=== PATIENT | female | born 1985 | race Caucasian/White ===

== ENCOUNTER 2023-08-13 11:35 | Emergency (ER) | payer BC, MEDICAID ==
[~2023-08-13] VITALS: Ht 154.9 cm; Wt 65.6 kg
[~2023-08-13 11:35] MED LIST: AMBI10TA PO; ATIV0.5T3 PO; EXCETAB80 PO; FLEX5TAB3 PO; FOLI1TAB86 PO; GABA-282 PO; HYDR50TA70 PO; IBUP-1022 PO; LAMO100T80 PO; LATU40TA2 PO; LEVO25TA4 PO; LITH300C PO; PAXI30TA12 PO; PRAZ2CAP PO; QUET100T2 PO; SYNT75TA PO; TRAZ-257 PO; TRAZ50TA2 PO; TYLE325T5 PO; VITA100T2 PO; VITA500046 PO; VITMTA PO; WELL100T PO
[2023-08-13] MEDS ORDERED: ACET-683 PO (12:02)
[2023-08-13] MEDS ORDERED: LEVO50TA5 (12:02)
[2023-08-13] MEDS ORDERED: METH-1164 (12:02)
[2023-08-13] MEDS ORDERED: BENA25CA4 PO (12:02)
[2023-08-13] MEDS ORDERED: IBUP200T46 PO (12:02)
[2023-08-13] MEDS ORDERED: ACETAMINOPHEN *IV* 1,000 MG in IV 1 EA IV ONE (12:55)
[2023-08-13] MEDS ORDERED: diphenhydrAMINE 50MG/ML VIAL IV ONE (12:55)
[2023-08-13] MEDS ORDERED: NS 1,000 ML IV ONE (12:55)
[2023-08-13] MEDS ORDERED: KETOROLAC 30 MG/ML 1ML VIAL IV ONE (12:55)
[2023-08-13 13:37] LABS: BASO # 0.1 10^3/uL (0.0-0.2); BASO % 0.6 % (0.0-1.0); EOS # 0.1 10^3/uL (0.0-0.5); EOS % 0.5 % (0.0-3.0); HEMATOCRIT 35.9 % (36.0-47.0); HEMOGLOBIN 11.8 g/dl (12.0-15.5); LYMPH # 2.3 10^3/uL (1.5-5.0); LYMPH % 21.8 % (24.0-44.0); MEAN CORPUSCULAR HEMOGLOBIN 29.9 pg (27.0-33.0); MEAN CORPUSCULAR HGB CONC 32.9 g/dl (32.0-36.5); MEAN CORPUSCULAR VOLUME 91.1 fl (80.0-96.0); MONO # 0.6 10^3/uL (0.0-0.8); MONO % 5.4 % (2.0-8.0); NEUTROPHILS # 7.5 10^3/uL (1.5-8.5); NEUTROPHILS % 71.3 % (36.0-66.0); PLATELET COUNT, AUTOMATED 380 10^3/uL (150-450); RED BLOOD COUNT 3.94 10^6/uL (4.00-5.40); WHITE BLOOD COUNT 10.5 10^3/uL (4.0-10.0)
[2023-08-13 13:42] LABS: ERYTHROCYTE SEDIMENTATION RATE 12 mm/hr (0-20)
[2023-08-13 14:02] LABS: C REACTIVE PROTEIN QUANTITATIV < 0.40 MG/DL (<1.0); MAGNESIUM LEVEL 1.9 MG/DL (1.8-2.4)
[2023-08-13] MEDS ORDERED: ONDANSETRON 4MG 2ML VIAL IV ONE (14:55)
[2023-08-13] MEDS ORDERED: MAG SULF 1GM/100ML (MAG RUN) 1 GM in IV 1 EA IV ONE ×2 (14:55→16:25)
[2023-08-13] MEDS ORDERED: LIDOCAINE 2% MDV 20ML VIAL SC ONE (18:30)
[2023-08-13 19:29] VITALS: BP 116/76; TEMP 98; O2SAT 100
== END 2023-08-13 19:36 | disposition home or self-care (01) ==
LOC: M ED 11:35
DX: G43.909 Migraine, unspecified, not intractable, without status migrainosus (principal); F12.10 Cannabis abuse, uncomplicated; Z88.8 Allergy status to other drugs, medicaments and biological substances; Z91.040 Latex allergy status; Z79.1 Long term (current) use of non-steroidal anti-inflammatories (NSAID); Z79.899 Other long term (current) drug therapy; Z79.891 Long term (current) use of opiate analgesic
CPT/HCPCS: 64400; 80047; 83735; 84702; 85025; 85652; 86140; 96365; 96366; 96375; 99284; J2405; J3475

== ENCOUNTER → 2023-08-19 | Outpatient (CLI) | payer BC ==
[~2023-08-19] MED LIST changes: +ACET-683 PO; +BENA25CA4 PO; +IBUP200T46 PO; +LEVO50TA5; +METH-1164
[2023-08-19 13:48] LABS: HEMATOCRIT 36.5 % (36.0-47.0); HEMOGLOBIN 11.9 g/dl (12.0-15.5); MEAN CORPUSCULAR HEMOGLOBIN 29.9 pg (27.0-33.0); MEAN CORPUSCULAR HGB CONC 32.6 g/dl (32.0-36.5); MEAN CORPUSCULAR VOLUME 91.7 fl (80.0-96.0); PLATELET COUNT, AUTOMATED 394 10^3/uL (150-450); RED BLOOD COUNT 3.98 10^6/uL (4.00-5.40); WHITE BLOOD COUNT 8.8 10^3/uL (4.0-10.0)
[2023-08-19 14:00] LABS: ERYTHROCYTE SEDIMENTATION RATE 16 mm/hr (0-20)
[2023-08-19 14:08] LABS: URIC ACID 4.2 MG/DL (3.1-7.8)
[2023-08-19 14:09] LABS: C REACTIVE PROTEIN QUANTITATIV < 0.40 MG/DL (<1.0)
[2023-08-19 14:12] LABS: ALBUMIN 3.8 G/DL (3.2-5.2); ALKALINE PHOSPHATASE 76 U/L (46-116); ALT/SGPT 20 U/L (7.0-40); AST/SGOT 16 U/L (<34); BILIRUBIN,TOTAL 0.5 MG/DL (0.3-1.2); BLOOD UREA NITROGEN 15 MG/DL (9-23); CALCIUM LEVEL 9.2 MG/DL (8.5-10.1); CARBON DIOXIDE LEVEL 28 MMOL/L (20-31); CHLORIDE LEVEL 106 MMOL/L (98-107); CHOLESTEROL LEVEL 218 MG/DL (<200); CHOLESTEROL RISK RATIO 3.79 (<5); CREATININE FOR GFR 0.69 MG/DL (0.55-1.30); FREE T4 0.99 NG/DL (0.89-1.76); GLOMERULAR FILTRATION RATE > 60.0 (>60); GLUCOSE, FASTING 96 MG/DL (60-100); HDL CHOLESTEROL 57.4 MG/DL (>40); NON-HDL-C 160.6 MG/DL; POTASSIUM SERUM 4.1 MMOL/L (3.5-5.1); SODIUM LEVEL 137 MMOL/L (136-145); THYROID STIMULATING HORMONE 2.297 uIU/ML (0.55-4.78); TRIGLYCERIDES LEVEL 118 MG/DL (<150); VITAMIN B12 LEVEL 363 PG/ML (211-911)
[2023-08-19 14:13] LABS: FOLATE 9.3 NG/ML (>5.4); RHEUMATOID FACTOR QUANT < 3.5 IU/ML (<14)
[2023-08-19 14:15] LABS: FREE T3 3.4 PG/ML (2.3-4.2)
[2023-08-19 14:16] LABS: THYROID PEROXIDASE ANTIBODY 652 U/ML (<60.0)
== END ==
LOC: M LAB 13:00
PROVIDERS: ATTEND Registered Nurse
DX: Z13.29 Encounter for screening for other suspected endocrine disorder (principal); Z13.21 Encounter for screening for nutritional disorder; Z13.220 Encounter for screening for lipoid disorders; M25.541 Pain in joints of right hand; E06.3 Autoimmune thyroiditis; E72.12 Methylenetetrahydrofolate reductase deficiency

== ENCOUNTER → 2023-08-19 | Outpatient (REF) ==
[2023-08-19 13:33] LABS: RSV AMPLIFICATION NEGATIVE (NEGATIVE)
== END ==
LOC: M EMP 12:24
PROVIDERS: ATTEND Family Medicine
DX: Z11.52 Encounter for screening for COVID-19 (principal)

== ENCOUNTER → 2023-08-27 | Outpatient (CLI) | payer BC ==
[2023-08-27 13:16] LABS: C REACTIVE PROTEIN QUANTITATIV < 0.40 MG/DL (<1.0)
[2023-08-27 13:17] LABS: CHOLESTEROL LEVEL 226 MG/DL (<200); LDL CHOLESTEROL 139.6 MG/DL (<100); TRIGLYCERIDES LEVEL 107 MG/DL (<150)
[2023-08-27 13:20] LABS: TOTAL 25(OH) VITAMIN D 28.9 NG/ML (20.0-100.0)
== END ==
LOC: M LAB 12:19
PROVIDERS: ATTEND Registered Nurse
DX: M62.838 Other muscle spasm (principal); E78.01 Familial hypercholesterolemia

== ENCOUNTER → 2023-10-08 | Outpatient (REF) ==
[2023-10-08 14:13] LABS: RSV AMPLIFICATION NEGATIVE (NEGATIVE)
== END ==
LOC: M EMP 13:19
PROVIDERS: ATTEND Family Medicine
DX: Z11.52 Encounter for screening for COVID-19 (principal)

== ENCOUNTER 2023-10-15 08:47 | Emergency (ER) | payer BC ==
[~2023-10-15] VITALS: Ht 154.9 cm; Wt 66.0 kg
[2023-10-15] MEDS ORDERED: ROSU20TA61 (08:55)
[2023-10-15] MEDS ORDERED: GABA-1171 (08:55)
[2023-10-15] MEDS ORDERED: TIZA10TA (08:55)
[2023-10-15 10:01] LABS: RSV AMPLIFICATION NEGATIVE (NEGATIVE)
[2023-10-15] MEDS: IBUPROFEN 600MG TAB PO ONE (11:14)
[2023-10-15] MEDS ORDERED: BENZ200C70 PO (11:54)
[2023-10-15] MEDS ORDERED: IBUP-1022 PO (11:54)
[2023-10-15 12:03] VITALS: BP 100/68; TEMP 97.8; O2SAT 98
== END 2023-10-15 12:04 | disposition home or self-care (01) ==
LOC: M ED 08:47
DX: J10.01 Influenza due to other identified influenza virus with the same other identified influenza virus pneumonia (principal); G43.909 Migraine, unspecified, not intractable, without status migrainosus; K21.9 Gastro-esophageal reflux disease without esophagitis; E03.9 Hypothyroidism, unspecified; E55.9 Vitamin D deficiency, unspecified; Z91.040 Latex allergy status; Z88.8 Allergy status to other drugs, medicaments and biological substances; Z79.891 Long term (current) use of opiate analgesic; Z79.899 Other long term (current) drug therapy; Z79.1 Long term (current) use of non-steroidal anti-inflammatories (NSAID)

== ENCOUNTER 2023-10-22 11:24 | Emergency (ER) | payer BC ==
[~2023-10-22] VITALS: Ht 154.9 cm; Wt 64.8 kg
[~2023-10-22 11:24] MED LIST changes: +BENZ200C70 PO; +GABA-1171; +ROSU20TA61; +TIZA10TA
[2023-10-22 16:50] VITALS: BP 108/71; TEMP 99.6; O2SAT 99
== END 2023-10-22 17:56 | disposition home or self-care (01) ==
LOC: M ED 11:24
DX: G43.909 Migraine, unspecified, not intractable, without status migrainosus (principal); E03.9 Hypothyroidism, unspecified; K21.9 Gastro-esophageal reflux disease without esophagitis; F41.9 Anxiety disorder, unspecified; F32.A Depression, unspecified; E55.9 Vitamin D deficiency, unspecified; R45.851 Suicidal ideations; Z88.8 Allergy status to other drugs, medicaments and biological substances; Z91.040 Latex allergy status; Z79.899 Other long term (current) drug therapy

== ENCOUNTER → 2023-12-11 | Outpatient (REF) | LOC: M EMP 08:30 | PROVIDERS: ATTEND Family Medicine | DX: Z11.52 Encounter for screening for COVID-19 (principal) ==

== ENCOUNTER → 2024-01-04 | Outpatient (CLI) | payer BC ==
[2024-01-04 15:47] LABS: FREE T4 1.05 NG/DL (0.89-1.76); THYROID STIMULATING HORMONE 2.732 uIU/ML (0.55-4.78)
[2024-01-04 15:48] LABS: FOLATE > 24.00 NG/ML (>5.4); VITAMIN B12 LEVEL 753 PG/ML (211-911)
[2024-01-04 15:50] LABS: FREE T3 3.1 PG/ML (2.3-4.2)
== END ==
LOC: M LAB 14:51
PROVIDERS: ATTEND Registered Nurse
DX: R53.83 Other fatigue (principal); E03.9 Hypothyroidism, unspecified

== ENCOUNTER → 2024-01-21 | Outpatient (CLI) | payer BC ==
[2024-01-21 10:56] LABS: MAGNESIUM LEVEL 1.8 MG/DL (1.8-2.4)
[2024-01-21 11:13] LABS: MONO SCRN NEGATIVE (NEGATIVE)
[2024-01-22 14:08] LABS: EBV VIRAL CAPSID AG IGM < 36.00 U/mL (<36.00)
== END ==
LOC: M LAB 07:09
PROVIDERS: ATTEND Registered Nurse
DX: R53.83 Other fatigue (principal); R00.2 Palpitations

== ENCOUNTER → 2024-01-22 | Outpatient (CLI) | payer BC | LOC: M RAD 07:19 | PROVIDERS: ATTEND Pain Medicine Interventional Pain Medicine | DX: M54.12 Radiculopathy, cervical region (principal); M50.222 Other cervical disc displacement at C5-C6 level ==

== ENCOUNTER 2024-03-18 16:15 | Emergency (ER) | payer BC ==
[~2024-03-18] VITALS: Ht 154.9 cm; Wt 68.2 kg
[2024-03-18 16:16] VITALS: BP 114/75; TEMP 98.8; O2SAT 97
== END 2024-03-18 22:06 | disposition left against medical advice (07) ==
LOC: M ED 16:15
DX: Z53.21 Procedure and treatment not carried out due to patient leaving prior to being seen by health care provider (principal)

== ENCOUNTER 2024-03-25 08:44 | Emergency (ER) | payer BC ==
[~2024-03-25] VITALS: Ht 154.9 cm; Wt 63.9 kg
[2024-03-25 08:45] VITALS: BP 121/77; TEMP 97.3; O2SAT 100
[2024-03-25] MEDS ORDERED: ONDA-282 (08:56)
[2024-03-25] MEDS ORDERED: ATOG60TA (08:56)
[2024-03-25] MEDS ORDERED: INDO-16 (08:56)
[2024-03-25 09:56] LABS: BASO # 0.1 10^3/uL (0.0-0.2); BASO % 0.6 % (0.0-1.0); EOS # 0.1 10^3/uL (0.0-0.5); EOS % 1.2 % (0.0-3.0); HEMATOCRIT 37.3 % (36.0-47.0); HEMOGLOBIN 12.6 g/dl (12.0-15.5); LYMPH # 2.6 10^3/uL (1.5-5.0); LYMPH % 29.4 % (24.0-44.0); MEAN CORPUSCULAR HGB CONC 33.8 g/dl (32.0-36.5); MEAN CORPUSCULAR VOLUME 88.8 fl (80.0-96.0); MONO # 0.5 10^3/uL (0.0-0.8); MONO % 5.8 % (2.0-8.0); NEUTROPHILS # 5.6 10^3/uL (1.5-8.5); NEUTROPHILS % 62.7 % (36.0-66.0); PLATELET COUNT, AUTOMATED 394 10^3/uL (150-450); WHITE BLOOD COUNT 8.9 10^3/uL (4.0-10.0)
[2024-03-25 10:26] LABS: LIPASE 34 U/L (12-53)
[2024-03-25 10:28] LABS: ALBUMIN 4.1 G/DL (3.2-5.2); ALKALINE PHOSPHATASE 82 U/L (46-116); ALT/SGPT 10 U/L (7.0-40); AST/SGOT 8 U/L (<34); BILIRUBIN,DIRECT 0.1 MG/DL (<0.4); BILIRUBIN,TOTAL 0.5 MG/DL (0.3-1.2); BLOOD UREA NITROGEN 7 MG/DL (9-23); CALCIUM LEVEL 9.7 MG/DL (8.5-10.1); CARBON DIOXIDE LEVEL 26 MMOL/L (20-31); CHLORIDE LEVEL 106 MMOL/L (98-107); GLOMERULAR FILTRATION RATE > 60.0 (>58); GLUCOSE, FASTING 89 MG/DL (60-100); POTASSIUM SERUM 4.2 MMOL/L (3.5-5.1); SODIUM LEVEL 139 MMOL/L (136-145); TOTAL PROTEIN 7.4 G/DL (5.7-8.2)
== END 2024-03-25 10:47 | disposition left against medical advice (07) ==
LOC: M ED 08:44
DX: Z53.21 Procedure and treatment not carried out due to patient leaving prior to being seen by health care provider (principal)

== ENCOUNTER 2025-04-10 21:55 | Emergency (ER) | payer BC ==
[~2025-04-10] VITALS: Ht 154.9 cm; Wt 56.8 kg
[~2025-04-10 21:55] MED LIST changes: -AMBI10TA PO; +ATOG60TA PO; +GABA-1172 PO; -GABA-282 PO; -IBUP-1022 PO; +IBUP600T42 PO; +INDO-16; +ONDA-282; -ROSU20TA61; +ROSU20TA86; +ZOLP-533 PO
[2025-04-10] MEDS ORDERED: ZOLO50TA PO (22:11)
[2025-04-11] MEDS: LORazepam 1 MG TAB PO PRN ×2 (00:11→04:01)
[2025-04-11 00:38] LABS: BASO # 0.1 10^3/uL (0.0-0.2); BASO % 0.5 % (0.0-1.0); EOS # 0.2 10^3/uL (0.0-0.5); EOS % 1.6 % (0.0-3.0); LYMPH # 2.9 10^3/uL (1.5-5.0); LYMPH % 26.7 % (24.0-44.0); MONO # 1.1 10^3/uL (0.0-0.8); MONO % 9.8 % (2.0-8.0); NEUTROPHILS # 6.6 10^3/uL (1.5-8.5); NEUTROPHILS % 61.1 % (36.0-66.0); PLATELET COUNT, AUTOMATED 333 10^3/uL (150-450)
[2025-04-11 00:46] LABS: APPEARANCE, URINE CLEAR (CLEAR); BACTERIA, URINE AUTO NEGATIVE (NEGATIVE); BILIRUBIN, URINE AUTO NEGATIVE (NEGATIVE); BLOOD, URINE BLOOD 1+ (NEGATIVE); GLUCOSE, URINE (UA) AUTO NEGATIVE (NEGATIVE); KETONE, URINE AUTO 1+ mg/dL (NEGATIVE); LEUKOCYTE ESTERASE, URINE AUTO NEGATIVE (NEGATIVE); MUCUS, URINE SMALL (NEGATIVE); NITRITE, URINE AUTO NEGATIVE (NEGATIVE); PROTEIN, URINE AUTO NEGATIVE (NEGATIVE); RBC, URINE AUTO 3 /HPF (0-3); SPECIFIC GRAVITY URINE AUTO 1.013 (1.002-1.035); SQUAMOUS EPITHELIAL CELL UR AU 2 /HPF (0-6); UROBILINOGEN, URINE AUTO 0.2 mg/dL (0.0-2.0); WBC, URINE AUTO 1 /HPF (0-3)
[2025-04-11 00:58] LABS: CPK CREATINE PHOSPHOKINASE 65 U/L (34-145)
[2025-04-11 00:59] LABS: ALT/SGPT 12 U/L (7.0-40); AST/SGOT 17 U/L (<34); CALCIUM LEVEL 9.4 MG/DL (8.5-10.1); CARBON DIOXIDE LEVEL 24 MMOL/L (20-31); CHLORIDE LEVEL 105 MMOL/L (98-107); CREATININE FOR GFR 0.72 MG/DL (0.55-1.30); GLOMERULAR FILTRATION RATE > 90.0 (>58); POTASSIUM SERUM 3.8 MMOL/L (3.5-5.1); SODIUM LEVEL 139 MMOL/L (136-145)
[2025-04-11 01:01] LABS: FREE T4 1.67 NG/DL (0.89-1.76)
[2025-04-11] MEDS ORDERED: ACETAMINOPHEN 325 MG TAB PO PRN (02:55)
[2025-04-11] MEDS: NS (Normal Saline) 0.9% 1,000 ML IV ONE (03:26)
[2025-04-11] MEDS: LR 1,000 ML IV SCH (04:15)
[2025-04-11 05:05] LABS: HCG, SERUM QUALITATIVE NEGATIVE (NEGATIVE)
[2025-04-11] MEDS: LEVOTHYROXINE 50 MCG TABLET (0.05 MG) PO SCH (06:08)
[2025-04-11 06:20] LABS: PLATELET COUNT, AUTOMATED 338 10^3/uL (150-450)
[2025-04-11 06:48] LABS: ALT/SGPT 11 U/L (7.0-40); AST/SGOT 15 U/L (<34); CALCIUM LEVEL 8.8 MG/DL (8.5-10.1); CARBON DIOXIDE LEVEL 23 MMOL/L (20-31); CHLORIDE LEVEL 107 MMOL/L (98-107); CREATININE FOR GFR 0.76 MG/DL (0.55-1.30); GLOMERULAR FILTRATION RATE > 90.0 (>58); POTASSIUM SERUM 4.0 MMOL/L (3.5-5.1); SODIUM LEVEL 141 MMOL/L (136-145)
[2025-04-11] MEDS ORDERED: MOM 30 ML SUSPENSION UDC PO PRN (07:50)
[2025-04-11] MEDS ORDERED: MAALOX 30 ML SUSP *UDC PO PRN (07:50)
[2025-04-11] MEDS ORDERED: GABAPENTIN 100 MG CAP PO SCH (09:00)
[2025-04-11] MEDS ORDERED: IBUP600T42 PO (10:41)
[2025-04-11] MEDS ORDERED: HOME MED LIST COMPLETE! XX SCH (10:45)
[2025-04-11] MEDS ORDERED: CLON0.5T2 PO (12:23)
[2025-04-11 13:45] VITALS: TEMP 97.9
[2025-04-11 14:00] VITALS: BP 114/77
[2025-04-11 14:15] VITALS: O2SAT 98
[2025-04-11 16:13] LABS: MAGNESIUM LEVEL 1.7 MG/DL (1.8-2.4)
== END 2025-04-11 14:25 | disposition home or self-care (01) ==
LOC: M ED 21:55
DX: F41.1 Generalized anxiety disorder (principal); E06.3 Autoimmune thyroiditis; E55.9 Vitamin D deficiency, unspecified; G43.909 Migraine, unspecified, not intractable, without status migrainosus; F12.10 Cannabis abuse, uncomplicated; F10.10 Alcohol abuse, uncomplicated; Z88.8 Allergy status to other drugs, medicaments and biological substances; Z91.040 Latex allergy status; Z79.899 Other long term (current) drug therapy; Z79.1 Long term (current) use of non-steroidal anti-inflammatories (NSAID)